=== PATIENT | male | born 1980 | race Caucasian/White ===

== ENCOUNTER → 2025-08-17 07:31 | Outpatient (CLI) | payer OTHER, SELFPAY ==
--- NOTE | 2025-08-17 07:34 | DI.NM.S_ITS ---
PROCEDURE: NM VICENTE PERF SPECT REST & STR Rest and exercise myocardial perfusion SPECT with gated imaging and ejection fraction RADIOPHARMACEUTICAL: 12.9 mCi Tc-99m sestamibi IV at rest and 25.8 mCi Tc-99m sestamibi IV at peak exercise. A 1 day-protocol was performed. INDICATIONS: Abnormal ECG during exercise stress; dyspnea TECHNIQUE: Radiopharmaceutical was injected at peak stress test, and also at rest. SPECT images were obtained. SPECT myocardial perfusion images were displayed in short axis, horizontal long axis, and vertical long axis views. Gated images were reviewed using [employer] software. COMPARISON: None. CARDIAC STRESS: A standard Adiel treadmill exercise tolerance test was performed by the patient under the supervision of an attending staff. The patient exercised for 12 minutes and 15 seconds; 12.8 METS; functional aerobic impairment (BRAIN) is -7%. Hemodynamic data: There is normal blood pressure and heart rate response to exercise stress. Patient achieved 96% of maximum predicted heart rate at peak exercise. Peak blood pressure 200/100. Symptoms: Patient denied chest pain during exercise. EKG: Rest ECG sinus rhythm 77 bpm. Exercise ECG sinus tachycardia, 1.5 to [address] segment depressions leads II, aVF, V3-V6. Rare PVCs. FINDINGS: Raw data: There is good myocardial labeling by radiotracer. No significant motion artifacts. [id number] ratio is 0.25 (normal is less than 0.38 for sestamibi tracer, and less than 0.50 for thallium tracer). Left ventricle function: Gated images demonstrate normal left ventricle wall thickening. No segmental wall motion abnormality. No transient ischemic dilation; TID is 0.76 (normal less than 1.3). The left ventricle resting end-diastolic volume is 141 mL. Left ventricle stress ejection fraction is 71%; normal values are above 45%. Myocardial perfusion: There is normal distribution of activity in the left and right ventricular myocardium. No fixed or reversible perfusion defects. IMPRESSION: Low risk perfusion study. No evidence of exercise-induced perfusion defects on SPECT imaging. False positive exercise ECG. Dilated left ventricle based on calculated LVEDV with normal function. Normal hemodynamic response to exercise. Good exercise capacity. Dictated by: Edie Amin D.O. on 08/17/2025 at 16:26 Approved by: Edie Amin D.O. on 08/17/2025 at 16:30
== END ==
LOC: NUCM 07:33
PROVIDERS: Visit Provider Internal Medicine Interventional Cardiology
DX: R94.31 Abnormal electrocardiogram [ECG] [EKG] (principal)
CPT/HCPCS: 78452; 93017; A9502

== ENCOUNTER → 2025-08-17 08:06 | Outpatient (CLI) | payer OTHER, SELFPAY ==
--- NOTE | 2025-08-17 08:07 | DI.ECHO.S_ITS ---
[facility]+ [facility] : : [address] : : [place] : : [id number] : : Phone: [phone] Echocardiogram Report + + :Name: BRENT PEPE Study Date: 08/17/2025 Height: 72 in : :Hospital ReadingLocation: Weight: 230 lb : : Gender: Male BSA: 2.3 m2 : :: 1980 Age: 44 yrs BP: 155/88 mmHg: :Reason For Study: Abnormal ECG : :Ordering Physician: : :ZACH CUETO Performed By: Yazmin Canales : :Referring: ZACH CUETO : + + Interpretation Summary The left ventricle is normal in size and wall thickness. The ejection fraction is estimated to be 50-55%. There are no focal wall motion abnormalities. Normal diastolic function. The right ventricle grossly appears normal in size with probable normal systolic function. Pulmonary artery pressures cannot be estimated because of the lack of a measurable TR jet velocity but the IVC suggests a CVP of around 3 mmHg. The left atrium is borderline dilated. There is no significant valvular heart disease. The aortic root is normal size. Procedure: A two-dimensional transthoracic echocardiogram with color flow and Doppler was performed. The study quality was technically adequate. There is no prior echocardiogram noted for this patient. The heart rate ranged between 65-68 bpm during the study. Left Ventricle: The left ventricle is normal in size and wall thickness. The ejection fraction is estimated to be 50-55%. There are no focal wall motion abnormalities. Normal diastolic function. Right Ventricle: The right ventricle grossly appears normal in size with probable normal systolic function. Atria: The left atrium is borderline dilated. The right atrium is mildly dilated. The interatrial septum grossly appears intact with no obvious evidence for an atrial septal defect. Mitral Valve: The mitral valve is normal in structure and function. There is no mitral regurgitation noted. Aortic Valve: The aortic valve is trileaflet. The aortic valve opens well. There is no aortic valve stenosis. No aortic regurgitation is present. Tricuspid Valve: The tricuspid valve leaflets are thin and pliable. There is a trace or physiologic amount of tricuspid regurgitation. Pulmonary artery pressures cannot be estimated because of the lack of a measurable TR jet velocity but the IVC suggests a CVP of around 3 mmHg. Pulmonic Valve: The pulmonic valve is not well seen, but is grossly normal. There is no pulmonic valvular regurgitation. There is no significant valvular heart disease. Great Vessels: The aortic root is normal size. The ascending aorta is normal in size. The aortic arch is normal in size. The IVC is of normal diameter and collapses greater than 50% with a sniff. This suggests a low right atrial pressure of 3 mm Hg. Pericardium/ Pleura There is no pericardial effusion. There is no pleural effusion. MMode/2D Measurements & Calculations LVIDd: 5.5 cm LVOT diam: 2.4 cm LVIDs: 3.9 cm Ao root diam: 3.5 cm FS: 28.5 % asc Aorta Diam: 2.9 cm EPSS: 0.75 cm Ao Arch Diam (Prox Trans): 2.8 cm IVSd: 1.1 cm LVPWd: 0.64 cm LV marie. diameter/BSA (cm/m^2): 2.4 LV sys. diameter/BSA (cm/m^2): 1.7 LA A2 area: 25.6 cm2 RA long axis: 5.8 cm LA A4 area: 22.9 cm2 RA area: 23.0 cm2 LA length (vol): 6.3 cm RA vol: 77.5 ml LA vol: 79.3 ml RA : 34.3 ml/m2 LA vol index: 35.1 ml/m2 IVC diam: 2.1 cm RVD1 (basal): 2.8 cm TAPSE: 2.5 cm Doppler Measurements & Calculations Ao V2 max: 110.2 cm/sec LVOT Max Kalyan: 88.6 cm/sec Ao V2 mean: 78.6 cm/sec LV V1 max P.1 mmHg Ao max P.9 mmHg LV V1 VTI: 20.4 cm Ao mean P.8 mmHg TERRY(I,D): 3.6 cm2 Ao V2 VTI: 25.4 cm TERRY(V,D): 3.6 cm2 sev ratio: 0.81 TERRY indexed to BSA (cm^2/m^2): 1.6 MV E max kalyan: 78.7 cm/sec PA V2 max: 82.6 cm/sec MV A max kalyan: 49.4 cm/sec PA V2 mean: 58.8 cm/sec MV E/A: 1.6 PA mean P.6 mmHg Med Peak E' Kalyan: 9.3 cm/sec PA pr(Accel): 10.9 mmHg E/E' med: 8.4 Lat Peak E' Kalyan: 10.9 cm/sec E/E' lat: 7.2 E/e' average: 7.8 MV dec time: 0.17 sec SV(LVOT): 91.8 ml Reading Physician:05:26 PM
[2025-08-17 10:17] LABS: Add Manual Diff / Slide Review NO; Hematocrit 42.0 % (41-53); Hemoglobin 14.6 g/dL (13.5-17.5); Lymphocytes Absolute Auto 1600 /uL (1100-4500); Mean Corpuscular HGB Conc 34.7 % (30-36); Mean Corpuscular Hemoglobin 30.6 PG (26-34); Mean Corpuscular Volume 88.0 fL (80-100); Platelet Count 338 X10^3/uL (150-400)
[2025-08-17 11:10] LABS: Alanine Aminotransferase 29 IU/L (<50); Albumin 4.6 g/dL (3.5-5.0); Albumin Globulin Ratio 1.6 (1.0-2.8); Alkaline Phosphatase 42 U/L (38-126); Blood Urea Nitrogen 14 mg/dL (9-20); Calcium 9.5 mg/dL (8.4-10.2); Carbon Dioxide 27 mmol/L (22-32); Chloride 105 mmol/L (98-107); Cholesterol 227 mg/dL (140-199); Estimated Glomerular Filt Rate > 60 mL/min (>60); Globulin 2.8 g/dL (1.7-4.1); Glucose 106 mg/dL (70-99); HDL Cholesterol 70 mg/dL (40-60); HEMOLYSIS < 15 (0-50); Magnesium 1.8 mg/dL (1.6-2.3); Potassium 4.2 mmol/L (3.4-5.1); Sodium 140 mmol/L (137-145); Total Protein 7.4 g/dL (6.3-8.2); Triglycerides 155 mg/dL (35-150)
== END ==
PROVIDERS: Visit Provider Internal Medicine Interventional Cardiology
DX: R94.31 Abnormal electrocardiogram [ECG] [EKG] (principal); G47.33 Obstructive sleep apnea (adult) (pediatric); F10.10 Alcohol abuse, uncomplicated; Z72.0 Tobacco use
CPT/HCPCS: 36415; 78452; 80053; 80061; 83735; 85025; 93017; 93306; A9502